=== PATIENT | male | born 1965 | race African-American/Black ===

== ENCOUNTER 2019-10-11 10:10 | Emergency (ER) | payer OTHER ==
[~2019-10-11] VITALS: Ht 175.3 cm; Wt 68.5 kg
== END 2019-10-11 13:08 | disposition home or self-care (01) ==
LOC: ER 10:10
DX: R53.81 Other malaise (principal); Z03.818 Encounter for observation for suspected exposure to other biological agents ruled out; R05 Cough; R51 Headache

== ENCOUNTER 2019-10-16 12:24 | Emergency (ER) | payer OTHER ==
[~2019-10-16] VITALS: Ht 175.3 cm; Wt 68.5 kg
[2019-10-16] MEDS ORDERED: MULTI VITAMIN1 EACH PO (12:56)
[2019-10-16] MEDS ORDERED: VITAMIN C500 M3 PO (12:56)
== END 2019-10-16 14:18 | disposition home or self-care (01) ==
LOC: ER 12:24
DX: B34.9 Viral infection, unspecified (principal)

== ENCOUNTER 2020-06-08 10:28 | Emergency (ER) | payer OTHER ==
[~2020-06-08] VITALS: Ht 175.3 cm; Wt 68.0 kg
[~2020-06-08 10:28] MED LIST: MULTI VITAMIN1 EACH PO; VITAMIN C500 M3 PO
== END 2020-06-08 14:48 | disposition home or self-care (01) ==
LOC: ER 10:28
DX: B34.9 Viral infection, unspecified (principal); Z03.818 Encounter for observation for suspected exposure to other biological agents ruled out

== ENCOUNTER 2021-02-06 19:34 | Emergency (ER) | payer OTHER ==
[~2021-02-06] VITALS: Ht 175.3 cm; Wt 67.1 kg
== END 2021-02-07 00:01 | disposition home or self-care (01) ==
LOC: ER 19:34
DX: J06.9 Acute upper respiratory infection, unspecified (principal); B34.9 Viral infection, unspecified; Z20.822 Contact with and (suspected) exposure to COVID-19; Z03.818 Encounter for observation for suspected exposure to other biological agents ruled out

== ENCOUNTER 2021-02-09 14:24 | Emergency (ER) | payer OTHER ==
[~2021-02-09] VITALS: Ht 175.3 cm; Wt 67.1 kg
== END 2021-02-09 16:18 | disposition home or self-care (01) ==
LOC: ER 14:24
DX: B34.9 Viral infection, unspecified (principal); Z20.822 Contact with and (suspected) exposure to COVID-19

== ENCOUNTER 2021-02-16 08:30 | Outpatient (CLI) | payer OTHER | END 2021-02-16 10:00 | disposition home or self-care (01) | LOC: ASH CLINIC 08:30 | PROVIDERS: ATTEND Emergency Medicine | DX: Z23 Encounter for immunization (principal); U07.1 COVID-19 ==

== ENCOUNTER 2022-02-03 08:23 | Emergency (ER) | payer OTHER ==
[~2022-02-03] VITALS: Ht 175.3 cm; Wt 68.0 kg
== END 2022-02-03 08:59 | disposition home or self-care (01) ==
LOC: ER 08:23
DX: M25.511 Pain in right shoulder (principal)